=== PATIENT | male | born 1995 | race American Indian/Alaskan Native ===

== ENCOUNTER 2019-07-06 22:17 | Emergency (ER) | payer MEDICAID ==
[2019-07-06] MEDS ORDERED: fentaNYL 100 MCG/2 ML INJ IV ONE (22:35)
[2019-07-06] MEDS ORDERED: LORazepam 2 MG/ML VIAL IV ONE (22:35)
[2019-07-06] MEDS ORDERED: ONDANSETRON 4 MG/2 ML INJ IV ONE (22:35)
[2019-07-06] MEDS ORDERED: SODIUM CHLORIDE 0.9% 1000 ML 1,000 ML IV ONE (22:38)
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
[2019-07-06 23:45] LABS: Basophils % (Auto) 0.5 % (0.0-1.8); Eosinophils # (Auto) 0.1 K/mm3 (0.0-0.4); Eosinophils % (Auto) 0.8 % (0.0-4.3); Hematocrit 42.9 % (35.5-45.6); Hemoglobin 14.5 gm/dl (11.8-15.2); Lymphocytes # (Auto) 1.6 K/mm3 (1.2-5.4); Lymphocytes % (Auto) 25.2 % (13.4-35.0); Mean Corpuscular HGB Conc 34 % (32-34); Mean Corpuscular Volume 82 fl (84-94); Monocytes # (Auto) 0.5 K/mm3 (0.0-0.8); Monocytes % (Auto) 7.2 % (0.0-7.3); Platelet Count 371 K/mm3 (140-440); Red Blood Count 5.26 M/mm3 (3.65-5.03); Red Cell Distribution Width 13.6 % (13.2-15.2)
[2019-07-07 00:01] LABS: BUN/Creatinine Ratio 20; Blood Urea Nitrogen 12 mg/dL (9-20); Calcium 9.4 mg/dL (8.4-10.2); Hemolysis Index 19
[2019-07-07 00:18] VITALS: BP 133/86
== END 2019-07-07 01:00 | disposition home or self-care (01) ==
LOC: ED 22:17
DX: M79.605 Pain in left leg (principal); M62.838 Other muscle spasm; F17.200 Nicotine dependence, unspecified, uncomplicated
CPT/HCPCS: 36415; 80048; 82550; 83735; 85025; 96374; 96375; 99284; J2060; J2405; J3010; J7030